=== PATIENT | female | born 1970 ===

== ENCOUNTER 2022-02-02 13:44 | Emergency (ER) | payer SELFPAY ==
[~2022-02-02] VITALS: Ht 165.1 cm; Wt 82.0 kg
[2022-02-02 13:47] VITALS: BP 115/80
== END 2022-02-02 18:58 | disposition left against medical advice (07) ==
LOC: ER 13:44
DX: Z53.21 Procedure and treatment not carried out due to patient leaving prior to being seen by health care provider (principal); R07.9 Chest pain, unspecified; R94.31 Abnormal electrocardiogram [ECG] [EKG]
CPT/HCPCS: 93005